=== PATIENT | female | born 1985 | race African-American/Black ===

== ENCOUNTER 2016-10-31 23:52 | Inpatient (IN) | payer OTHER ==
[~2016-10-31] VITALS: Ht 167.6 cm; Wt 88.5 kg
--- NOTE | ~2016-10-31 | EKG ---
[address] [place] [address] ELECTROCARDIOGRAM REPORT Name: CINTHIA PAYNE Room #: 237-P ADM IN M.R.#: [id number] Admission: 11/01/16 Attend Phys: Misael Rodriguez MD Discharge: Date of : 85 Report #: [id number] THIS REPORT FOR: //name// [facility] ED Test Date: 2016-11-01 Test Time: 00:01:58 Pat Name: CINTHIA PAYNE Department: Room: 237 P Gender: F Drilling Assistant: SAVANAH TRIPP : 1985 Requested By: Willian Frazier Order Number: [id number] MD: Zachary Clemons Measurements Intervals [place] Rate: 137 P: 85 CO: 110 QRS: 66 QRSD: 115 T: 7 QT: 325 QTc: 491 Interpretive Statements Sinus tachycardia Consider right atrial enlargement Artifact in multiple lead(s) No previous ECG available for comparison Electronically Signed On 11-01-2016 7:56:41 CDT by Zachary Clemons [email or web address] <ELECTRONICALLY SIGNED> By: Zachary Celmons MD, [facility] 11/01/16 0756 0001 0001 Zachary Clemons MD, FACC /EPI
--- NOTE | ~2016-10-31 | HC ---
[facility] [place] [address] CONSULTATION Name: CINTHIA PAYNE Room #: 457-P ADM IN M.R.#: [id number] Admission: 11/01/16 Attend Phys: Misael Rodriguez MD Discharge: Date of : 85 Report #: [id number] THIS REPORT FOR: //name// CC: [facility] physician/PCP Misael Rodriguez MD DATE OF SERVICE: 11/01/2016 REFERRING PROVIDER: Misael Rodriguez M.D. REASON FOR CONSULTATION: Shortness of breath and asthma exacerbation. HISTORY OF PRESENT ILLNESS: Our group was asked to see the patient while hospitalized in the Intensive Care Unit at [facility]. A pleasant 31-year-old black female with known history of longstanding asthma, typically is on no therapy but has significant problems with her asthma typically in the spring time. Notes hospitalization last in last October. Has had some increasing shortness of breath and cough without sputum production. Has been using hers and her family members' inhalers and nebulizer trying to alleviate symptoms. Was at [facility] on 10/26 by her report for similar complaints, but could not be admitted due to trying to care for 6 children, did not have any support to watch them. States is currently incarcerated and has no family that could have helped that day. 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 The patient had increasing symptoms, presented to the Emergency Department with acute worsening of symptoms last evening, noticed to be in respiratory distress, was placed on noninvasive positive pressure ventilation with BiPAP overnight. Currently more alert this morning with audible wheezes, but less dyspneic off BiPAP. Does note smoking use and occasional cocaine. No other inhaled drugs. ALLERGIES: None known. PAST MEDICAL HISTORY: 1. Severe asthma. 2. Substance abuse by patient report. 3. Tobacco abuse. OUTPATIENT MEDICATIONS: Include vitamins. The patient denies any other medications. SOCIAL HISTORY: As mentioned above, some drug use, particularly cocaine, tobacco and alcohol. Stating she does 2-3 cigarettes per day. Currently not employed, has 6 children. she states is incarcerated. FAMILY HISTORY: Significant for asthma in a child. [facility] [address] [place] [address] CONSULTATION Name: CINTHIA PAYNE Room #: 457-P [facility] IN .R.#: [id number] Admission: 11/01/16 Attend Phys: Misael Rodriguez MD Discharge: Date of : 85 Report #: [id number] REVIEW OF SYSTEMS: CONSTITUTIONAL: No fevers, chills or sweats. EARS, NOSE AND THROAT: No upper respiratory congestion, rhinorrhea or dysphagia. CARDIOVASCULAR: No chest pains or palpitations. GASTROINTESTINAL: No nausea, vomiting, diarrhea, constipation or abdominal pain. GENITOURINARY: No dysuria or urinary frequency. INTEGUMENT: Denies any rash. MUSCULOSKELETAL: No new joint pains or swelling. PAST SURGICAL HISTORY: The patient denies any significant surgeries. PHYSICAL EXAMINATION: VITAL SIGNS: Afebrile, pulse 110 and regular, respiratory rate 18, blood pressure 141/89 and oxygen saturation 100% on 3 liters. GENERAL: This is a relatively pleasant young woman, does not appear in any distress off BiPAP. HEENT: Clear oropharynx. No dental caries. No thrush. NECK: Supple, no lymphadenopathy. LUNGS: Diminished with prolonged expiratory phase, diffuse expiratory wheezes noted throughout. CARDIOVASCULAR: Heart regular but tachycardic. No murmurs. ABDOMEN: Soft and nontender, no masses. EXTREMITIES: Without edema. LABORATORY DATA: Chest x-ray done overnight revealed clear lung doe. No infiltrates appreciated. CBC revealed mild anemia with hemoglobin of 12, otherwise within normal limits. Chemistry profile within normal limits except for a mildly elevated glucose of 204 and creatinine 1.2. Troponin was negative. Serum test was negative. Arterial blood gas initially on BiPAP, revealed pH 7.31, pCO2 of 51 and pO2 544, this improved while on BiPAP. No being off BiPAP noted. Cocaine screen positive. Urine opiates also positive. Drug of abuse screen negative so far. IMPRESSION: 1. Acute exacerbation of asthma. The patient is poorly controlled. Had a lengthy discussion with the patient about need for daily medications to control her asthma and the importance of asthma control and filling her medications. The patient denies cost has been prohibitive for her. It is unclear then why she has been noncompliant. She has no physicians either to assist with management. 2. Polysubstance abuse. We will have to the discuss with the patient further. 3. Tobacco abuse. [address] [address] CONSULTATION Name: CINTHIA PAYNE Room #: 457-P [facility] IN ..#: [id number] Admission: 11/01/16 Attend Phys: Misael Rodriguez MD Discharge: Date of : 85 Report #: [id number] SUGGESTIONS: 1. Systemic steroid taper. 2. Continue with the Levaquin for now. 3. Mobilize as able, but keep in ICU for now. Shannen borjasrKumarn. Again discussed with the patient long-term management at the time of discharge. By: 1230 0431 Servando Nuñez MD /nt
[~2016-10-31 23:52] MED LIST: FLEXERIL PO; KEFLEX500 MG PO; NAPROSYN500 MG PO; NOHOMEMEDICATIONS; PRENATAL PO; ZOFRAN ODT4 MG PO
[2016-10-31 23:53] VITALS: BP 137/113
[2016-11-01] VITALS (23 sets, daily range): BP systolic 125–156; BP diastolic 55–108
[2016-11-01 00:01] LABS: ABSOLUTE NEUTROPHILS 3.7 thou/uL (1.4-8.2); BASOPHILS 0.8 % (0.0-2.0); EOSINOPHILS 10.5 % (0.0-3.0); HEMATOCRIT 39.1 % (37.0-47.0); HEMOGLOBIN 12.7 gm/dL (12.0-15.0); LYMPHOCYTES 38.3 % (24.0-44.0); MCH 26.2 pg (26.0-34.0); MCHC 32.5 g/dL (28.0-37.0); MCV 80.5 fL (80.0-100.0); MONOCYTES 8.4 % (1.0-8.0); PLATELET COUNT 299 thou/uL (150-400); RBC 4.85 mil/uL (4.20-5.00); RDW 16.8 % (10.5-14.5); WBC 8.8 thou/uL (4.0-11.0)
[2016-11-01 00:04] LABS: MANUAL DIFF NO
[2016-11-01 00:09] LABS: CALCIUM 9.1 mg/dL (8.5-10.1); CREATININE 1.1 mg/dL (0.6-1.0); POTASSIUM 3.5 mmol/L (3.5-5.1)
[2016-11-01 00:26] LABS: ABG SAMPLE TYPE ARTERIAL; HCO3 24.9 mmol/L (22.0-26.0); LACTATE 1.01 mmol/L (0.5-2.0); O2(CT) 20.4 mL/dL (15.0-23.0); PCO2 50.8 mmHg (35.0-45.0); PO2 544.7 mmHg (80.0-100.0); Pressure Support 12 cm H20; STICK SITE R.RADIAL; pH 7.308 (7.360-7.450); sO2 99.9 % (92.0-98.0); tCO2 26.4 mmol/L (24.0-30.0)
[2016-11-01 02:00] LABS: ABG SAMPLE TYPE ARTERIAL; BE(vivo) -2.6 mmol/L (-2 to +3); HCO3 21.9 mmol/L (22.0-26.0); LACTATE 2.05 mmol/L (0.5-2.0); O2Hb 98.4 % (92.0-98.0); PCO2 37.4 mmHg (35.0-45.0); PO2 255.3 mmHg (80.0-100.0); STICK SITE R.RADIAL; pH 7.386 (7.360-7.450); sO2 99.6 % (92.0-98.0); tCO2 23.1 mmol/L (24.0-30.0)
[2016-11-01 02:01] LABS: ABG COMMENT BIPAP 18/ 6; Pressure Support 12 cm H20
[2016-11-01 02:24] LABS: NT-PRO BRAIN NAT PEPTIDE 10 pg/mL (<300); TROPONIN-I < 0.04 ng/mL (<0.04-0.07)
[2016-11-01 07:56] LABS: ANION GAP 13 mmol/L (7-16); BUN 9 mg/dL (7-18); CALCIUM 8.8 mg/dL (8.5-10.1); CHLORIDE 104 mmol/L (98-107); CO2 20 mmol/L (21-32); CREATININE 1.2 mg/dL (0.6-1.0); GLUCOSE 204 mg/dL (74-106); POTASSIUM 4.1 mmol/L (3.5-5.1); SODIUM 137 mmol/L (136-145); TROPONIN-I < 0.04 ng/mL (<0.04-0.07)
[2016-11-01 08:40] LABS: URINE BILIRUBIN NEGATIVE (Negative); URINE BLOOD NEGATIVE (Negative); URINE COLOR YELLOW; URINE GLUCOSE-RANDOM* 1+ (Negative); URINE KETONES NEGATIVE (Negative); URINE NITRITE NEGATIVE (Negative); URINE PROTEIN (DIPSTICK) NEGATIVE (Negative); URINE SPECIFIC GRAVITY >= 1.030 (1.003-1.035); URINE UROBILINOGEN 0.2 E.U./dl (0.2-1.0)
[2016-11-01 08:50] LABS: AMP/METHAMP Negative (Negative); BARBITURATES Negative (Negative); BENZODIAZEPINES Negative (Negative); COCAINE POSITIVE (Negative); METHADONE Negative (Negative); OPIATES POSITIVE (Negative); PCP Negative (Negative); THC Negative (Negative)
[2016-11-01 08:55] LABS: HEMATOCRIT 36.9 % (37.0-47.0); HEMOGLOBIN 11.9 gm/dL (12.0-15.0); MCH 26.1 pg (26.0-34.0); MCHC 32.2 g/dL (28.0-37.0); MCV 81.2 fL (80.0-100.0); RBC 4.55 mil/uL (4.20-5.00); WBC 9.6 thou/uL (4.0-11.0)
[2016-11-02 04:05] VITALS: BP 110/60
[2016-11-02 07:02] VITALS: BP 110/58
[2016-11-02 11:18] VITALS: BP 146/74
[2016-11-02] MEDS ORDERED: LEVAQUIN 750 M750 MG PO (13:53)
[2016-11-02] MEDS ORDERED: ALBUTEROL2.5 MG/0.5 INH (13:53)
[2016-11-02] MEDS ORDERED: VENTOLIN HFA 1818 GM INH (13:54)
[2016-11-02] MEDS ORDERED: AMLODIPINE BESYL5 M1 PO (13:54)
[2016-11-02] MEDS ORDERED: PREDNISONE 10 M10 MG PO (13:55)
[2016-11-02 14:01] VITALS: BP 146/74
== END 2016-11-02 16:21 | disposition home or self-care (01) | DRG 189 ==
LOC: ER 23:52 → ICU 11-01 01:20 → EROBS 11-01 01:20 → 4W 11-01 01:20 → ICU 11-01 02:09 → 4W 11-01 16:41
PROVIDERS: Emergency Medicine; Hospitalist; Nurse Practitioner Family
PROC: 5A09357 Assistance with Respiratory Ventilation, Less than 24 Consecutive Hours, Continuous Positive Airway Pressure (ICD-10-PCS; principal; 2016-11-01)
DX: J96.02 Acute respiratory failure with hypercapnia (principal); J45.901 Unspecified asthma with (acute) exacerbation; I10 Essential (primary) hypertension; R07.9 Chest pain, unspecified; F17.210 Nicotine dependence, cigarettes, uncomplicated; F14.90 Cocaine use, unspecified, uncomplicated; F19.10 Other psychoactive substance abuse, uncomplicated
CPT/HCPCS: 10045